=== PATIENT | female | born 1990 | race Caucasian/White ===

== ENCOUNTER 2018-12-21 20:30 | Emergency (ER) | payer MEDICAID, OTHER ==
[2018-12-21 21:04] VITALS: BP 133/88
[2018-12-21] MEDS ORDERED: Fluorescein Sodium TOPICAL* 1 MG TEST STRIP OPHTHALMIC ONE (21:08)
[2018-12-21] MEDS ORDERED: Tetracaine 0.5% OPTH.SOL 4 ML* 1 DROP BTL BOTH EYES ONE (21:08)
--- NOTE | 2018-12-21 21:31 | UC ---
Eye Complaint HPI - HPI Summary HPI Summary: C/O redness/ swelling with photophobia OS. Wears contacts and took them out last night. Awoke with the symptoms. - History of Current Complaint Chief Complaint: UCEye Stated Complaint: LEFT EYE COMPLAINT Hx Obtained From: Patient Hx Last Menstrual Period: 11/30/18 ?: No Onset/Duration: Sudden Onset, Lasting Hours - 12, Still Present Timing: Constant Severity Initially: Severe Severity Currently: Severe Pain Intensity: 8 Character: Sharp Aggravating Factor(s): Light, Blinking Alleviating Factor(s): Darkness Associated Signs And Symptoms: Positive: Photophobia, Swelling. Negative: Drainage (Clear), Drainage (Purulent), Vision Impairment Bilateral, Fever - Risk Factors Penetrating Injury Risk Factor: Negative Globe Rupture Risk Factors: Negative Acute Glaucoma Risk Factors: Eye Inflammation - Allergies/Home Medications Allergies/Adverse Reactions: Allergies Allergy/AdvReac Type Severity Reaction Status Date / Time No Known Allergies Allergy Verified 12/21/18 20:55 PMH/Surg Hx/FS Hx/Imm Hx Previously Healthy: Yes - Surgical History Surgical History: Yes Surgery Procedure, Year, and Place: TWICE - Family History Known Family History: Positive: Unknown - Doesn't know her family history - Social History 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 Lives: With Family Alcohol Use: Occasionally Substance Use Type: None Smoking Status (MU): Never Smoked Tobacco Review of Systems All Other Systems Reviewed And Are Negative: Yes Eyes: Positive: Eye Redness, Photophobia Is Patient Immunocompromised?: No Physical Exam Triage Information Reviewed: Yes Appearance: Well-Appearing, Pain Distress - moderate, Obese Vital Signs: Initial Vital Signs Temp 98.2 F 12/21/18 20:56 Pulse 88 12/21/18 20:56 Resp 18 12/21/18 20:56 BP 133/88 12/21/18 20:56 Pulse Ox 100 12/21/18 20:56 Vital Signs Reviewed: Yes Eyes: Positive: Conjunctiva Clear - OD, Conjunctiva Inflamed - OS, Other: - Flourescein positive OS at the edge of the cornea at 5 oclock ENT: Positive: Pharynx normal Neck exam: Normal Respiratory Exam: Normal Cardiovascular Exam: Normal Musculoskeletal Exam: Normal Neurological Exam: Normal Psychological Exam: Normal Skin Exam: Normal Eye Complaint Course/Dx - Differential Dx/Diagnosis Differential Diagnosis/HQI/PQRI: Conjunctivitis, Corneal Abrasion, Glaucoma, Uveitis Provider Diagnosis: Corneal abrasion, left Discharge - Sign-Out/Discharge Documenting (check all that apply): Patient Departure All imaging exams completed and their final reports reviewed: No Studies - Discharge Plan Condition: Stable Disposition: HOME Prescriptions: Erythromycin OPTH OINT* [Erythromycin 0.5% OPTH OINT*] 1 applic LEFT EYE TID # 3.5 gm Patient Education Materials: Corneal Abrasion (ED), Erythromycin (Into the eye) Referrals: No Primary Care Phys,NOPCP [Primary Care Provider] - Additional Instructions: If not better in 3 days follow up with an shoe fitter/ insulation supervisor. - Billing Disposition and Condition Condition: STABLE Disposition: Home
[2018-12-21] MEDS ORDERED: Erythromycin OPTH OINT* APPLIC OINT LEFT EYE ONE (21:33)
== END 2018-12-21 21:45 | disposition home or self-care (01) ==
LOC: UCCORT 20:30
DX: H18.822 Corneal disorder due to contact lens, left eye (principal)
CPT/HCPCS: 99212; A9270-GY; G0463

== ENCOUNTER 2019-05-23 08:53 | Emergency (ER) | payer OTHER ==
[2019-05-23 09:30] VITALS: BP 125/74
--- NOTE | 2019-05-23 10:04 | UC ---
Throat Pain/Nasal Sukh HPI - HPI Summary HPI Summary: ONSET YESTERDAY OF ST, PAIN WITH SWALLOWING AND MILD COUGH. NO FEVER. DAUGHTER AT HOME WITH STREP. - History of Current Complaint Chief Complaint: UCRespiratory Stated Complaint: SORE THROAT Time Seen by Provider: 05/23/19 09:46 Hx Obtained From: Patient Hx Last Menstrual Period: 05/18/19 Onset/Duration: Sudden Onset, Lasting Days - 1 DAY, Still Present Severity: Moderate Pain Intensity: 8 Pain Scale Used: 0-10 Numeric Cough: Nonproductive Associated Signs & Symptoms: Negative: Fever - Allergies/Home Medications Allergies/Adverse Reactions: Allergies Allergy/AdvReac Type Severity Reaction Status Date / Time No Known Allergies Allergy Verified 05/23/19 09:24 PMH/Surg Hx/FS Hx/Imm Hx Previously Healthy: Yes - Surgical History Surgical History: Yes Surgery Procedure, Year, and Place: TWICE - Family History Known Family History: Positive: Unknown - Doesn't know her family history - Social History Alcohol Use: Occasionally Substance Use Type: None Smoking Status (MU): Never Smoked Tobacco Review of Systems All Other Systems Reviewed And Are Negative: Yes Constitutional: Positive: Negative ENT: Positive: Sore Throat Respiratory: Positive: Cough Cardiovascular: Positive: Negative Gastrointestinal: Positive: Negative Physical Exam Triage Information Reviewed: Yes Appearance: Well-Appearing, No Pain Distress, Well-Nourished Vital Signs: Initial Vital Signs Temp 98.5 F 05/23/19 09:24 Pulse 112 05/23/19 09:24 Resp 18 05/23/19 09:24 BP 125/74 05/23/19 09:24 Pulse Ox 97 05/23/19 09:24 Laboratory Tests 05/23/19 09:37 Group A Strep Rapid Positive A Eyes: Positive: Conjunctiva Clear ENT: Positive: Hearing grossly normal, Pharyngeal erythema, TMs normal. Negative: Tonsillar exudate Neck: Positive: Supple, Tenderness @ - TONSILLAR LAD, Enlarged Nodes @ - TONSILLAR LAD Respiratory Exam: Normal Cardiovascular: Positive: Tachycardia Abdomen Description: Positive: Soft Musculoskeletal: Positive: No Edema Neurological: Positive: Alert Psychological: Positive: Age Appropriate Behavior Skin: Negative: Rashes Throat Pain/Nasal Course/Dx - Differential Dx/Diagnosis Provider Diagnosis: Strep pharyngitis Discharge ED - Sign-Out/Discharge Documenting (check all that apply): Patient Departure All imaging exams completed and their final reports reviewed: No Studies - Discharge Plan Condition: Stable Disposition: HOME Prescriptions: Amoxicillin PO (*) [Amoxicillin 500 MG CAP*] 500 mg PO Q12H #20 cap Patient Education Materials: Strep Throat (ED) Referrals: [facility] [Outside] - If Needed Additional Instructions: STREP POSITIVE. TAKE ANTIBIOTICS FOR THE FULL 10 DAYS. OTC CHLORASEPTIC OR CEPACOL LOZENGES AND/OR IBUPROFEN FOR SORE THROAT NEEDED ONCE SYMPTOMS RESOLVED - NEW TOOTHBRUSH DO NOT SHARE FOOD, DRINK, UTENSILS CALL THE NUMBER BELOW FOR ASSISTANCE IN ESTABLISHING WITH A PCP An additional resource available to assist in finding the appropriate physician for your health care needs is [facility] ([facility]). You may contact them by calling [phone]. - Billing Disposition and Condition Condition: STABLE Disposition: Home
== END 2019-05-23 10:00 | disposition home or self-care (01) ==
LOC: UCCORT 08:53
DX: J02.0 Streptococcal pharyngitis (principal)
CPT/HCPCS: 87651; 99212; G0463